=== PATIENT | male | born 1970 | race Caucasian/White ===

== ENCOUNTER 2017-02-25 17:27 | Emergency (ER) | payer OTHER ==
[~2017-02-25] VITALS: Ht 172.7 cm; Wt 65.8 kg
--- NOTE | 2017-02-25 19:23 | ED THROAT/DENTAL COMPLAINT ---
History of Present Illness General Chief Complaint: Sore Throat, Dental Pain Stated Complaint: TOOTH PAIN WITH SWELLING Source: patient, family Exam Limitations: no limitations Allergies Coded Allergies: No Known Allergies (02/25/17) Reconcile Medications Acetaminophen (Arthritis Pain) 650 MG TABLET.ER 4 TAB PO PRN PAIN (Reported) Amoxicillin 500 MG TABLET 1 TAB PO 4 TIMES/DAY facial abscess Triage Note: PT C/O DENTAL PAIN LEFT SIDE OF FACE SWOLLEN. PT STATES THIS BEGAN HURTING A FEW DAYS AGO BUT IT JUST STARTED SWELLING LAST EVENING. Triage Nurses Notes Reviewed? yes HPI: Patient is a 46 year old male presents complaining of dental abscess and facial swelling. Symptoms onset yesterday, significantly worsening over the past 24 hours. Pain is severe, worsens with palpation. Positive subjective fevers. Patient has not been taking any medication for his symptoms. Denies difficulty swallowing, difficulty breathing. (JULISSA PERDOMO) Vital Signs & Intake/Output Vital Signs & Intake/Output Vital Signs Date Time Temp Pulse Resp B/P B/P Pulse O2 O2 Flow FiO2 Mean Ox Delivery Rate 02/25 2155 98.7 92 18 138/40 100 Room Air 02/25 2018 100 Room Air 02/25 1734 99.8 105 16 146/92 97 Room Air ED Intake and Output 02/26 0000 02/25 1200 Intake Total Output Total Balance Patient 145 lb Weight Weight Reported by Patient Measurement Method Past History Travel History Traveled to [place] past 21 day No Medical History Any Pertinent Medical History? see below for history Musculoskeletal: CHRONIC BACK PAIN Surgical History Surgical History: non-contributory Psychosocial History What is your primary language Hebrew Tobacco Use: Current Daily Use Daily Tobacco Use Amount/Type: => 5 Cigarettes daily ETOH Use: heavy use Illicit Drug Use: denies illicit drug use Family History Hx Contributory? No (JULISSA PERDOMO) Review of Systems Review of Systems Constitutional: Reports: fever. EENTM: Reports: mouth pain, tooth pain. Respiratory: Denies: cough, short of breath. Cardiovascular: Denies: chest pain. GI: Denies: abdominal pain, nausea, vomiting. Musculoskeletal: Reports: no symptoms. Skin: Reports: see HPI, erythema. Neurological/Psychological: Reports: headache. Hematologic/Endocrine: Denies: bruising, bleeding. Immunologic/Allergic: Denies: splenectomy. (JULISSA PERDOMO) Physical Exam Physical Exam General Appearance: alert, awake Head: moderate left maxillary facial swelling, erythema and tenderness. Extends to the inferior eyelid and slighly distorting the left side of the patient's nose. Eyes: Bilateral: PERRL, EOMI. Nose: erythema and swelling to the left side of the nose Mouth/Throat: diffusely decayed dentition and gingivitis. Dental abscess to tooth #11 Neck: normal inspection, supple, full range of motion, trachea midline Cardiovascular/Respiratory: normal breath sounds, regular rate/rhythm, no respiratory distress Back: normal inspection, normal range of motion Neurologic/Psych: awake, alert, oriented x 3, normal gait, normal mood/affect Skin: see head exam Core Measures ACS in differential dx? No Severe Sepsis Present: No Septic Shock Present: No (JANINE EUBANKS,JULISSA) Progress Differential Diagnosis: carious tooth, odontogenic abscess, stomatitis/ gingivitis, tooth fracture, osteomyelitis, sinusitis Diagnostic Imaging: Viewed by Me: CT Scan. Discussed w/RAD: CT Scan. Radiology Impression: PATIENT: CHANG HOPE PRESENT AGE: 46 PATIENT ACCOUNT NO: [id number] : 70 LOCATION: [facility] ORDERING PHYSICIAN: JULISSA EUBANKS SERVICE DATE: 02/25/17 EXAM TYPE: CAT - CT MAXILLOFACIAL W CONT EXAMINATION: CT MAXILLOFACIAL WITH CONTRAST CLINICAL INFORMATION: Dental abscess causing facial cellulitis. Facial swelling and tenderness on the left. COMPARISON: None. TECHNIQUE: Multidetector helical imaging was performed in the axial plane with generation of coronal and sagittal reformatted images. The examination was performed after the administration of 95 mL of Optiray 320 intravenous contrast DLP: 599.3 mGy-cm. FINDINGS: There is soft tissue swelling over the left side of the face around the left orbit and cheek. There is a subperiosteal abscess at the left anterior maxilla. Fluid collection measures approximately 0.6 cm of depth, coronal image 77, by 1.8 cm transverse, axial image 30 (5) by 2.5 cm superior inferior, coronal image 77. There is dental caries of multiple teeth. There is also loss of multiple teeth. In the area of the subperiosteal abscess multiple teeth have caries. There is also loss of some of the teeth on the left side of the maxilla but no specific abscess or fracture of bone. There is mucosal thickening in the ethmoid and inferior frontal sinuses bilateral. There is lobular mucosal thickening in the left maxillary sinus and the left maxillary sinus ostia is partially occluded. There is also partial occlusion of the sinus ostia on the right maxillary sinus though mucosal thickening is minimal in the sinus. The orbital globes and retrobulbar are structures are normal. IMPRESSION: 1. Subperiosteal abscess in the left frontal maxilla with overlying soft tissue swelling. There is poor dentition but no specific bone destruction or abscess. 2. Sinus disease. DICTATED BY: PEACE MENDOZA MD DATE/TIME DICTATED:02/25/172058 DIGITAL MEDIA PRODUCER :KAT DATE/TIME TRANSCRIBED:02/25/172058 CONFIDENTIAL, DO NOT COPY WITHOUT APPROPRIATE AUTHORIZATION. <Electronically signed in Other Vendor System> SIGNED BY: PEACE MENDOZA MD 02/25/172113 (JULISSA PERDOMO) Plan of Care: Orders Procedure Date/time Status BLOOD CULTURE 02/26 1936 Active LACTIC ACID 02/25 1919 Complete CBC WITHOUT DIFFERENTIAL 02/25 1919 Complete BASIC METABOLIC PANEL 02/25 1919 Complete Laboratory Tests 02/25/179: Lactic Acid Cancelled 02/25/171929: Anion Gap 14, Estimated GFR > 60, BUN/Creatinine Ratio 10.0, Glucose 86, Lactic Acid 1.4, Calcium 9.3, CBC w Diff NO MAN DIFF REQ, RBC 4.55 L, MCV 93.5, MCH 32.3 H, RDW 13.4, MPV 7.2 L, Gran % 80.4 H, Lymphocytes % 11.1 L, Monocytes % 7.3, Eosinophils % 0.9, Basophils % 0.3, Absolute Granulocytes 10.3 H, Absolute Lymphocytes 1.4, Absolute Monocytes 0.9 H, Absolute Eosinophils 0.1, Absolute Basophils 0, PUBS MCHC 34.5 Microbiology 02/25 1945 BLOOD: Blood Culture - RECD 02/25 1930 BLOOD: Blood Culture - RECD 2029: Results of labs discussed with patient. Patient reports moderate improvement after Toradol. Awaiting CT scan. 2139: Discussed with Dr. Hoyos(oral surgeon): start patient on Amox 500mg QID, and tomorrow morning at 830am call [phone] and will see the patient tomorrow. (HEILBRUNN PA,JULISSA) Departure Departure Disposition: HOME OR SELF CARE Condition: Stable Clinical Impression Primary Impression: Facial abscess Referrals: PATIENT HAS NO PRIMARY CARE DR (PCP/Family) HERNANDEZ DIAZ,JULISSA Garner Additional Instructions: Follow up with Dr. Hoyos(oral surgeon) tomorrow. At 830 am tomorrow morning call [phone] for your appointment. Departure Forms: Customer Survey General Discharge Information Prescriptions: Current Visit Scripts Amoxicillin 1 TAB PO 4 TIMES/DAY #40 TAB (JULISSA PERDOMO) PA/CLAIM PROFESSIONAL Co-Sign Statement Statement: ED Attending supervision documentation- [X] I saw and evaluated the patient. I have also reviewed all the pertinent lab results and diagnostic results. I agree with the findings and the plan of care as documented in the PA's/CLAIM PROFESSIONAL's documentation. [] I have reviewed the ED Record and agree with the PA's/CLAIM PROFESSIONAL's documentation. [] Additions or exceptions (if any) to the PAs/CLAIM PROFESSIONAL's note and plan are summarized below: [] (IRENE DIAZ,ANA Lujan)
[2017-02-25 19:49] LABS: ABSOLUTE BASOPHIL COUNT 0 /CUMM (0.0-0.2); ABSOLUTE EOSINOPHIL COUNT 0.1 /CUMM (0.0-0.7); ABSOLUTE GRANULOCYTE CT 10.3 /CUMM (1.4-6.5); ABSOLUTE LYMPH COUNT 1.4 /CUMM (1.2-3.4); ABSOLUTE MONOCYTE COUNT 0.9 /CUMM (0.10-0.60); BASOPHIL % 0.3 % (0.0-2.0); EOSINOPHIL % 0.9 % (0-5); GRANULOCYTE % 80.4 % (42.2-75.2); HEMATOCRIT 42.5 % (42-52); MEAN CORPUSCULAR HGB 32.3 PG (27.0-31.0); MEAN CORPUSCULAR HGB CONC 34.5 G/DL (33.0-37.0); MEAN CORPUSCULAR VOLUME 93.5 FL (80.0-94.0); MEAN PLATELET VOLUME 7.2 FL (7.4-10.4); PLATELET COUNT 304 /CUMM (130-400); RBC DISTRIBUTION WIDTH 13.4 % (11.5-14.5); RED BLOOD CELL CT 4.55 /CUMM (4.70-6.10); WHITE BLOOD CELL COUNT 12.8 /CUMM (4.8-10.8)
[2017-02-25] MEDS ORDERED: ARTHRITIS PAIN650 M2 PO (19:50)
--- NOTE | 2017-02-25 21:14 | CT SCAN REPORT ---
EXAMINATION: CT MAXILLOFACIAL WITH CONTRAST CLINICAL INFORMATION: Dental abscess causing facial cellulitis. Facial swelling and tenderness on the left. COMPARISON: None. TECHNIQUE: Multidetector helical imaging was performed in the axial plane with generation of coronal and sagittal reformatted images. The examination was performed after the administration of 95 mL of Optiray 320 intravenous contrast DLP: 599.3 mGy-cm. FINDINGS: There is soft tissue swelling over the left side of the face around the left orbit and cheek. There is a subperiosteal abscess at the left anterior maxilla. Fluid collection measures approximately 0.6 cm of depth, coronal image 77, by 1.8 cm transverse, axial image 30 (5) by 2.5 cm superior inferior, coronal image 77. There is dental caries of multiple teeth. There is also loss of multiple teeth. In the area of the subperiosteal abscess multiple teeth have caries. There is also loss of some of the teeth on the left side of the maxilla but no specific abscess or fracture of bone. There is mucosal thickening in the ethmoid and inferior frontal sinuses bilateral. There is lobular mucosal thickening in the left maxillary sinus and the left maxillary sinus ostia is partially occluded. There is also partial occlusion of the sinus ostia on the right maxillary sinus though mucosal thickening is minimal in the sinus. The orbital globes and retrobulbar are structures are normal. IMPRESSION: 1. Subperiosteal abscess in the left frontal maxilla with overlying soft tissue swelling. There is poor dentition but no specific bone destruction or abscess. 2. Sinus disease.
[2017-02-25] MEDS ORDERED: AMOXICILLIN500 M3 PO (21:48)
[2017-02-25 21:55] VITALS: BP 138/40
== END 2017-02-25 21:55 ==
LOC: ERH 17:27
PROVIDERS: Physician Assistant
DX: L02.01 Cutaneous abscess of face (principal)
CPT/HCPCS: 87040; 96365; 96375; J1885